=== PATIENT | male | born 2005 | race Two or more races ===

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

== ENCOUNTER 2024-12-19 21:04 | Emergency (ER) | payer SELFPAY | END 2024-12-19 22:29 | disposition home or self-care (01) | LOC: JD.ED 21:04 | DX: S66.901A Unspecified injury of unspecified muscle, fascia and tendon at wrist and hand level, right hand, initial encounter (principal); L03.113 Cellulitis of right upper limb; Z88.8 Allergy status to other drugs, medicaments and biological substances; Z79.899 Other long term (current) drug therapy; Z86.16 Personal history of COVID-19; X58.XXXA Exposure to other specified factors, initial encounter; Y93.67 Activity, basketball | CPT/HCPCS: 73140-26-F9; 73140-F9; 99283 ==